=== PATIENT | male | born 1955 | race Caucasian/White ===

== ENCOUNTER 2017-05-06 06:55 | Day surgery (SDC) | payer BC ==
[2017-04-30 18:26] VITALS: BMI 37.5
[~2017-05-06 06:55] MED LIST: LACTATED RINGERS 1,000 ML IV SCH
[2017-05-06 07:24] VITALS: RESP 18; TEMP 97.7
[2017-05-06] MEDS ORDERED: LIDOCAINE 1% 20 ML VIAL (10MG/ML) FOR IV START INTRADERMA ONE (07:24)
[2017-05-06] MEDS ORDERED: PROPOFOL 10 MG/ML 20 ML VIAL IV ONE (07:42)
--- NOTE | 2017-05-06 07:52 | P.GSHP ---
History of Present Illness H&P Date: 05/06/17 Chief Complaint: Screening colonoscopy This is a 61-year-old male referred from Dr. Kymberly Del Castillo. Patient rents today for screening colonoscopy. His last colonoscopy was over 10 years ago. Past Medical History Past Medical History: Cancer, GERD/Reflux, Hypertension Additional Past Medical History / Comment(s): BLADDER CANCER WITH CHEMO X1 (7 MONTHS AGO), GOUT, RASH RIGHT HAND, ENLARGED PROSTATE. History of Any Multi-Drug Resistant Organisms: None Reported Additional Past Surgical History / Comment(s): REPAIR BROKEN LEFT HIP WITH SCREWS., REMOVAL OF BLADDER CANCER, CYSTOSCOPY. Past Anesthesia/Blood Transfusion Reactions: Motion Sickness, Postoperative Nausea & Vomiting (PONV) Past Psychological History: No Psychological Hx Reported Smoking Status: Never smoker Past Alcohol Use History: Occasional Past Drug Use History: None Reported - Past Family History Mother Family Medical History: No Reported History Medications and Allergies Home Medications Medication Instructions Recorded Confirmed Type Colchicine [Colcrys] 0.6 mg PO BID 09/05/16 04/30/17 History Lisinopril 40 mg PO BID 09/05/16 04/30/17 History Aspirin 650 mg PO Q8HR PRN 04/30/17 04/30/17 History Febuxostat [Uloric] 80 mg PO HS 04/30/17 04/30/17 History Acetaminophen Tab [Tylenol Tab] 325 mg PO Q6H 05/06/17 05/06/17 History Allergies Allergy/AdvReac Type Severity Reaction Status Date / Time No Known Allergies Allergy Verified 04/30/17 18:17 Surgical - Exam Vital Signs Temp Pulse Resp BP Pulse Ox 97.7 F 76 18 114/76 96 05/06/17 07:22 05/06/17 07:22 05/06/17 07:22 05/06/17 07:22 05/06/17 07:22 - General well developed, no distress - Eyes PERRL - ENT normal pinna - Neck no masses - Respiratory normal expansion - Cardiovascular Rhythm: regular - Abdomen Abdomen: soft, non tender Assessment and Plan Plan: We'll perform screening colonoscopy.
--- NOTE | 2017-05-06 08:01 | P.OP ---
Date of Procedure: 05/06/17 Preoperative Diagnosis: Screening colonoscopy Postoperative Diagnosis: Diverticulosis Procedure(s) Performed: Colonoscopy Implants: Anesthesia: MAC Surgeon: Wiliam Antonio Pathology: none sent Condition: stable Disposition: PACU Indications for Procedure: Operative Findings: Description of Procedure: The patient's placed on the endoscopy table in the lateral position. He received IV sedation. Digital rectal exam was performed which revealed no abnormalities. The prostate was symmetric without nodules. The flexible colonoscope was then placed patient anus and passed throughout the entire colon. The ileocecal valve was visualized. The cecum, ascending and transverse colon appeared normal. In the descending; there is moderate diverticular changes. There is no is diverticulitis. The scope was withdrawn and the rectum appeared normal. Scope was then withdrawn for patient.
[2017-05-06 08:30] VITALS: BP 135/80; PULSE 57
== END 2017-05-06 08:45 | disposition home or self-care (01) ==
LOC: ORWHC2ENDO 06:55
PROVIDERS: ATTEND Surgery
DX: Z12.11 Encounter for screening for malignant neoplasm of colon (principal); K57.30 Diverticulosis of large intestine without perforation or abscess without bleeding; K21.9 Gastro-esophageal reflux disease without esophagitis; I10 Essential (primary) hypertension; Z85.51 Personal history of malignant neoplasm of bladder; Z92.21 Personal history of antineoplastic chemotherapy; M10.9 Gout, unspecified; N40.0 Benign prostatic hyperplasia without lower urinary tract symptoms; Z79.82 Long term (current) use of aspirin; Z79.899 Other long term (current) drug therapy
CPT/HCPCS: J2704; G0121

== ENCOUNTER → 2021-12-12 | Outpatient (CLI) | payer BC ==
--- NOTE | 2021-12-12 13:44 | US ---
EXAMINATION TYPE: US kidneys/renal and bladder DATE OF EXAM: 12/12/2021 COMPARISON: CT CLINICAL HISTORY: C67.9 MALIGNANT NEOPLASM OF BLADDER, UNSPECIFIED. H/O bladder CA EXAM MEASUREMENTS: Right Kidney: 12.8 x 5.7 x 5.2 cm Left Kidney: 13.2 x 6.2 x 5.6 cm Right Kidney: Appeared wnl Left Kidney: Appeared wnl Bladder: wnl Bilateral Jets seen: Yes There is no evidence for hydronephrosis at this point in time. No nephrolithiasis is seen. No leigh s are identified. The urinary bladder is anechoic. Bilateral ureteral jets are seen. IMPRESSION: No significant abnormality.
== END | disposition home or self-care (01) ==
LOC: RADUSWWP 13:09
PROVIDERS: ATTEND Urology
DX: C67.9 Malignant neoplasm of bladder, unspecified (principal)
CPT/HCPCS: 76770

== ENCOUNTER → 2022-05-06 | Outpatient (CLI) | payer BC ==
[2022-05-06 12:31] LABS: Partial Thromboplastin Time 23.7 sec (22.0-30.0); Prothrombin Time 10.9 sec (9.0-12.0)
[2022-05-06 17:46] LABS: HCT 49.1 % (39.6-50.0); HGB 15.6 g/dL (13.0-17.0); MCH 30.4 pg (27.0-32.0); MCHC 31.8 g/dL (32.0-37.0); MCV 95.7 fL (80.0-97.0); Mean Platelet Volume 11.4 fL (9.5-12.2); NRBC Per 100 WBC 0 /100 WBCS (0.0-0.0); Platelet Count 187 X 10*3/uL (140-440); RBC 5.13 X 10*6/uL (4.40-5.60)
[2022-05-06 18:11] LABS: African American GFR (CKD) 101.4 (60.0-200.0); Albumin 4.3 g/dL (3.8-4.9); Albumin/Globulin Ratio 1.75 (1.60-3.17); Anion Gap 12.8 mmol/L (10.00-18.00); BUN/Creat Ratio 16.18 Ratio (12.00-20.00); Blood Urea Nitrogen 14.9 mg/dL (9.0-27.0); Carbon Dioxide 22.8 mmol/L (20.0-27.5); Globulin 2.5 g/dL (1.6-3.3); Non-African American GFR(CKD) 87.5 (60.0-200.0); Potassium 4.6 mmol/L (3.5-5.5); Total Bilirubin 0.3 mg/dL (0.30-1.20); Total Protein 6.8 g/dL (6.2-8.2)
[2022-05-06 19:04] LABS: Appearance,Urine Clear (Clear); Bilirubin,Urine Negative (Negative); Blood,Urine Negative (Negative); Color,Urine Yellow (Yellow); Ketones,Urine Negative (Negative); Nitrite,Urine Negative (Negative); Specific Gravity,Urine 1.021 (1.001-1.030)
== END | disposition home or self-care (01) ==
LOC: LABPAT 11:27
PROVIDERS: ATTEND Orthopaedic Surgery
DX: Z01.812 Encounter for preprocedural laboratory examination (principal); M17.12 Unilateral primary osteoarthritis, left knee
CPT/HCPCS: 36415; 80053; 81003; 85027; 85610; 85730; 87070

== ENCOUNTER → 2022-05-23 | Outpatient (CLI) | payer BC ==
--- NOTE | 2022-05-23 23:44 | CT ---
EXAMINATION TYPE: CT left knee - [facility] Protocol DATE OF EXAM: 05/23/2022 COMPARISON: None HISTORY: 66-year-old male Left knee pain-[facility] knee protocol CT DLP: 563.5 mGycm Automated exposure control for dose reduction was used. TECHNIQUE: CT of the left knee for surgical planning purposes. Additional scanning through the bilate ral hips and both ankles. Coronal and sagittal reconstructions performed. FINDINGS: Sigmoid diverticulosis. There is moderate degenerative change of both hips. Percutaneous pinning acro ss the left femoral neck. One of the screws may just abut or nearly violate the subchondral bone plat e of the femoral head. Refer to coronal image 65 series 16. Clinically correlate. There is a moderate knee joint effusion. Synovial calcifications noted. Moderate to large Calderon's cys t. Tricompartmental osteoarthrosis, severe within the medial compartment, moderate to severe patellof emoral compartment. Moderate to large Calderon's cyst with chronic synovial thickening. Some degenerative changes suggested at the left ankle. 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 Some midfoot degenerative change noted. IMPRESSION: 1. MODERATE BILATERAL HIP OA. PERCUTANEOUS ENDING ACROSS THE LEFT FEMORAL NECK. ONE OF THESE SCREWS M AY JUST ABUT OR NEARLY VIOLATE THE SUBCHONDRAL BONE PLATE OF THE FEMORAL HEAD, CORONAL SERIES 16 IMAG E 65. 2. SIGMOID DIVERTICULOSIS. 3. MODERATE LEFT KNEE JOINT EFFUSION. SYNOVIAL CALCIFICATIONS ARE PRESENT AND MAY REFLECT CPPD. MODER ATE TO LARGE CALDERON'S CYST. TRICOMPARTMENTAL OSTEOARTHROSIS, SEVERE IN THE MEDIAL COMPARTMENT.
== END | disposition home or self-care (01) ==
LOC: RADCTMAIN 14:33
PROVIDERS: ATTEND Orthopaedic Surgery
DX: M17.12 Unilateral primary osteoarthritis, left knee (principal); M21.162 Varus deformity, not elsewhere classified, left knee; Z68.38 Body mass index [BMI] 38.0-38.9, adult

== ENCOUNTER 2022-06-05 13:55 | Day surgery (SDC) | payer BC ==
[2022-06-03 16:16] VITALS: BMI 37.5
[~2022-06-05 13:55] MED LIST changes: +ACETAMINOPHEN TAB 500 MG TAB PO PRN; +DEXAMETHASONE SOD PHOSPHATE 10 MG/ML 1 ML VIAL IV PRN; +DOCUSATE 100 MG CAP PO PRN; +FAMOTIDINE 20 MG/2 ML VIAL IVP PRN; +KETOROLAC 15 MG/ML 1 ML VIAL IVP PRN; -LACTATED RINGERS 1,000 ML IV SCH; +LIDOCAINE 1% (10MG/ML) FOR IV START INTRADERMA PRN; +ONDANSETRON 4 MG/2 ML VIAL IVP PRN; +ROPIVACAINE/EPI/CLONIDINE/KET 50 ML SYRINGE MISCELLANE PRN; +TRANEXAMIC ACID 1,000 MG in SODIUM CHLORIDE 0.9% 100 ML IVPB ONE; +TRANEXAMIC ACID IN NACL,ISO-OS 1,000 MG in SALINE 1 100ML.BAG IVPB PRN; +oxyCODONE ER 10 MG TAB.ER.12H PO PRN
[2022-06-05] MEDS: LACTATED RINGERS 1,000 ML IV SCH ×2 (14:21→14:39)
[2022-06-05] MEDS ORDERED: MIDAZOLAM 2 MG/2 ML VIAL IVP ONE (14:55)
[2022-06-05] MEDS ORDERED: fentaNYL (PF) 50 MCG/ML 2 ML AMP IVP ONE (14:59)
[2022-06-05 15:28] LABS: Glucose,Whole Blood 90 mg/dL (70-110)
[2022-06-05] MEDS ORDERED: SODIUM CHLORIDE 0.9% (PF) 10 ML VIAL ONE (15:33)
[2022-06-05] MEDS ORDERED: DEXAMETHASONE SOD PHOSPHATE 4 MG/ML 1 ML VIAL ONE (15:33)
[2022-06-05] MEDS ORDERED: ROPIVACAINE 5 MG/ML 30 ML VIAL ONE (15:33)
[2022-06-05] MEDS ORDERED: MIDAZOLAM 2 MG/2 ML VIAL ONE (15:33)
[2022-06-05] MEDS ORDERED: TRANEXAMIC ACID IN NACL,ISO-OS 1,000 MG/100 ML BAG ONE (15:33)
[2022-06-05] MEDS ORDERED: fentaNYL (PF) 50 MCG/ML 2 ML AMP ONE (15:33)
--- NOTE | 2022-06-05 15:38 | P.ANPRN ---
Procedure Note - Anesthesia - Nerve Block Performed Left Adductor Canal Single Time Out Performed: Yes ([id number]) Date of Procedure: 06/05/22 Procedure Start Time: 14:59 Procedure Stop Time: 15:06 Location of Patient: PreOp Indication: Acute Post-Operative Pain, Dx/Pain Location (Left knee), Requested by Surgeon Specifically requested for management of pain by DrSera: Kael Hunter Sedation Type: Sedate with meaningful contact maintained Preparation: Sterile Prep Position: Supine Needle Types: Pajunk Needle Gauge: 21 Ultrasound used to visualize needle placement: Yes Ultrasound used to observe medication spread: Yes Injectate: 0.5% Ropivacaine (see comment for volume) (20 cc + 4mg of decadron) Blood Aspirated: No Pain Paresthesia on Injection Noted: No Resistance on Injection: Normal Image Stored and Saved: Yes Events: Uneventful and Well Tolerated Left iPack Single Time Out Performed: Yes Date of Procedure: 06/05/22 Location of Patient: PreOp Indication: Acute Post-Operative Pain, Dx/Pain Location (Left knee), Requested by Surgeon Specifically requested for management of pain by DrSera: Kael Hunter Sedation Type: Sedate with meaningful contact maintained Preparation: Sterile Prep Position: Right Lateral Catheter: None Needle Types: Pajunk Needle Gauge: 21 Ultrasound used to visualize needle placement: Yes Ultrasound used to observe medication spread: Yes Injectate: 0.5% Ropivacaine (see comment for volume) (20 cc) Blood Aspirated: No Pain Paresthesia on Injection Noted: No Resistance on Injection: Normal Image Stored and Saved: Yes Events: Uneventful and Well Tolerated
[2022-06-05] MEDS ORDERED: LACTATED RINGERS 1,000 ML IV ONE ×2 (18:07)
[2022-06-05] MEDS ORDERED: ONDANSETRON 4 MG/2 ML VIAL IVP PRN (18:11)
[2022-06-05] MEDS ORDERED: HYDROcodone/APAP 5-325MG 1 EACH TAB PO PRN ×2 (18:11)
[2022-06-05] MEDS ORDERED: NALOXONE 0.4 MG/ML 1 ML VIAL IV PRN (18:11)
[2022-06-05] MEDS ORDERED: HYDROmorphone 0.5 MG/0.5 ML SYRINGE IVP PRN ×3 (18:11)
[2022-06-05 18:12] LABS: Glucose,Whole Blood 141 mg/dL (70-110)
--- NOTE | 2022-06-05 18:16 | P.OP ---
Date of Procedure: 06/05/22 Preoperative Diagnosis: 1. Sever left knee osteoarthritis 2. Type 2 diabetes (preoperative hemoglobin A1c 7) 3. History of bladder cancer Postoperative Diagnosis: Same Procedure(s) Performed: Left total knee arthroplasty Implants: 1. [employer] CR Femur Size #4 2. [employer] [place] Tibial Base Size #5 3. [employer] CS poly Size #4, 9-mm 4. [employer] all poly patella, Size #32 Anesthesia: regional, spinal Surgeon: Kael Hunter Machine Set Up Operator Paper Goods #1: Ashley Fraga Estimated Blood Loss (ml): 200 IV fluids (ml): 800 Pathology: none sent Condition: stable Disposition: PACU Indications for Procedure: I met with the patient preoperatively in the office setting and discussed treatment of their symptomatic knee arthritis. They failed a long course of nonsurgical treatment and elected to proceed with an elective total knee replacement. I discussed the potential risks and complications at length and gave them ample time to ask questions. Risks discussed included: risks from anesthesia, superficial site surgical infection, acute and/or chronic periprosthetic joint infection, delayed wound healing, drainage, wound necrosis, instability, stiffness, stiffness requiring manipulation and/or revision surgery, damage to local blood vessels or nerves, aseptic loosening of the implants, extensor mechanism issues including disruption, patellar maltracking, avascular necrosis etc., continued or worsened knee pain, generalized dissatisfaction with surgical outcome, need for revision surgery, an inability to regain preinjury level of function, DVT, PE, other medical complications, and possibly loss of life or limb. The patient voiced their understanding that while these are the most common complications other less common complications are possible. They provided both their verbal and written consent to go forward with surgery. Operative Findings: Severe tricompartmental arthritis Description of Procedure: The patient was identified in preoperative holding and the correct operative extremity was verified and marked with a marker. I reviewed the consent form with the patient at length. All of their questions were answered. The patient was given a block by anesthesia. They were then brought back to the operating room. They were transferred onto the operating room table where a general anesthetic, preoperative antibiotics, and tranexamic acid were administered by anesthesia. A tourniquet was applied to the proximal aspect of the operative extremity. The contralateral extremity was padded under the heel and secured to the operating room table with a nonsterile blue towel and tape. The ipsilateral arm was carefully draped across the patient's chest and secured with a pillow and foam. A post was applied over the lateral aspect of the ipsilateral thigh and a bolster was placed under the ipsilateral foot. I verified that the operative extremity was stable and the knee was flexed to 90. The operative extremity was then placed in a leg raman, nonsterile drapes were applied, and the extremity was prepped and draped sterilely in the standard sterile fashion. Prior to starting surgery timeout was performed identifying the correct patient, operative extremity, and procedure. The leg was then elevated, exsanguinated with an Esmarch bandage, and the tourniquet was inflated. An anterior midline incision was made sharply with a scalpel. Once I had dissected deep to the superficial fascial layer medial and lateral flaps were elevated. A medial parapatellar arthrotomy was created. Upon opening the knee joint there were diffuse arthritic changes in all 3 compartments. The anterior horn of the medial meniscus were sharply released and a medial release was performed around the posterior medial corner of the knee to facilitate retractor placement. The fat pad was excised with electrocautery. The patella was found to be severely arthritic and a provisional cut was made with a sagittal saw to facilitate mobilization of the extensor mechanism during the procedure. Remnants of the ACL and PCL were then excised from the notch. 4 mm pins were then placed within the incision in the medial distal femur and proximal tibia. Arrays were applied to the pins and I verified they were completely tightened. The knee was then registered with the Pica8 robot and manipulations in implant position were made to balance the knee and opitmize implant position. Using the Eusebio robotic saw all cuts were made in accordance with our plan. After all bony fragments had been removed the cuts were verified with the planar probe. The tibia was then subluxed forward and sized. The knee was brought into flexion and a lamina lead sustainability specialist was placed to allow removal of the meniscal remnants both medially and laterally as well as posterior osteophytes. Local anesthetic was then infiltrated around the joint capsule. Trial implants were then placed within the knee. Range of motion and collateral ligament tension was then evaluated. Adjustments in implant size and position were then made accordingly. Once the knee was felt to be appropriately balanced the Eusebio pins were removed. The patella was then recut, sized, and punched. A trial patellar button was then placed. With the trial components in place, the patella tracked midline. The femur was then drilled and the trial component removed. The trial tibial component was then appropriately rotated, pinned, and prepared for the keel. All trial components were then removed from the knee. The knee was thoroughly irrigated with pulsatile lavage. Cement was prepared via vacuum mixing in a bowl on the back table. I then hand pressurized cement into the femur and tibia and placed the implants beginning with the tibial base tray and poly liner, femoral component, and finally the patellar button. All extruded cement was removed including from the pin sites. Once the cement had hardened the knee was evaluated one final time with the final polyethylene liner in place. The knee had full extension and flexion and felt stable to varus and valgus stress throughout the arc of motion. The tourniquet was released and with the tourniquet down the patella tracked midline. All bleeders were controlled with electrocautery. The knee was then soaked for 3 minutes with a dilute Betadine soak. The knee was thoroughly irrigated using 3 L of sterile saline and pulsatile lavage. The extensor mechanism was then reapproximated using pop off Vicryl sutures followed by a running barbed suture. The knee was then closed in layers with a 0 strata fix for the deep fascial layer, 2-0 strata fix for the superficial subcutaneous layer and Monocryl and Steri-Strips for the skin. A sterile dressing was applied. I verified that all instrument, sponge, and sharp counts were correct. The patient was then transferred off the operating room table, extubated, and brought to recovery having tolerated the procedure well. Ashley Fraga PA-C was required as a skilled biology research assistant due to the complexity of the procedure for patient positioning, draping, retraction, placement of hardware, and closure of wound. PLAN: The patient can weight-bear as tolerated on the operative extremity. DVT prophylaxis with aspirin 81 mg twice a day based on preoperative risk stratification. Follow-up in the office in 2 weeks for wound check and x-rays of the knee including an AP and lateral.
[2022-06-05] MEDS: HYDROmorphone 0.5 MG/0.5 ML SYRINGE IVP PRN ×2 (18:20→18:50)
--- NOTE | 2022-06-05 18:51 | XR ---
EXAMINATION TYPE: XR knee limited LT DATE OF EXAM: 06/05/2022 COMPARISON: NONE HISTORY: Knee pain TECHNIQUE: 2 views FINDINGS: There is a left knee prosthesis. Components appear in good position. IMPRESSION: No complicating process seen.
[2022-06-05] MEDS ORDERED: ONDANSETRON ODT 4 MG TAB PO ONE (19:28)
[2022-06-05] MEDS ORDERED: ONDANSETRON 4 MG/2 ML VIAL IVP ONE (19:28)
[2022-06-05] MEDS ORDERED: SENNOSIDES-DOCUSATE SODIUM 1 EACH TAB PO SCH (21:00)
[2022-06-05] MEDS: ASPIRIN 81 MG PO SCH (21:42)
[2022-06-06] MEDS: LACTATED RINGERS 1,000 ML IV SCH (05:03)
[2022-06-06 07:28] LABS: Glucose,Whole Blood 140 mg/dL (70-110)
[2022-06-06] MEDS: ASPIRIN 81 MG PO SCH (08:04)
--- NOTE | 2022-06-06 08:31 | P.DS ---
Providers Expected date of discharge: 06/06/22 Attending physician: Kael Hunter Consults: 06/05/22 18:11 Consult Physician Routine Consulting Provider: Lisa Phelan Consult Reason/Comments: medical management Do you want consulting provider notified?: Yes Primary care physician: Vazquez Phelan MD Hospital Course: This is a 67-year-old male who has been followed in our office by Dr. Hunter for continued complaints of left knee pain due to left knee osteoarthritis. Treatment options were discussed, and patient elected to undergo a left total knee arthroplasty. Patient was seen pre-operatively by Dr. Phelan and cleared for surgery. Patient underwent a BERNARD left total knee arthroplasty on 06/05/22. The procedure was performed without complication or sequelae. The patient is doing fairly well postoperatively. Vital signs and labs are stable on postoperative day #1. Patient was examined bedside today with Dr. Hunter. Patient states he is overall doing very well and the pain in his left knee is well-controlled. He has been ambulating with a walker with minimal assistance. Patient has passed physical therapy to return home. Patient is tolerating his diet well. Patient is comfortable being discharged home today. Patient denies chest pain, shortness of breath, nausea, vomiting, fevers, chills. On examination, the patient is sitting up in the bed in no apparent distress. He is alert and orientated 3. On inspection of the left knee, there is a clean, dry, intact Opsite dressing in place. There is no bleeding or drainage the dressing. Patient has good strength and ROM of the left ankle and toes. Motor and sensory function is intact of the left lower extremity. The dorsalis pedis pulse is easily palpable, the left lower extremity is warm and well perfused with brisk capillary refill. Calf is soft and non-tender to palpation. Patient is discharged home with home health in good condition, pending medical clearance. Patient will follow-up with Dr. Hunter in the office in 2 weeks. Please see med rec for accurate list of discharge medication. Plan - Discharge Summary Discharge Rx Participant: No New Discharge Prescriptions: New Docusate [Colace] 100 mg PO BID #60 capsule Diclofenac Sodium [Voltaren] 75 mg PO BID 30 Days #60 tab Aspirin 81 mg PO BID 30 Days #60 tab HYDROcodone/APAP 5-325MG [[place] 5-325] 1 - 2 tab PO Q6HR PRN 7 Days #32 tab PRN Reason: Pain Omeprazole 40 mg PO DAILY 30 Days #30 cap No Action lisinopriL 40 mg PO QAM Febuxostat [Uloric] 80 mg PO HS Acetaminophen Tab [Tylenol Tab] 325 - 650 mg PO Q6H PRN PRN Reason: Pain Glimepiride [Amaryl] 2 mg PO AC-BRKFST Mupirocin [Bactroban Nasal Ointment 2% (with applicator)] 1 applic TOPICAL BID Tamsulosin [Flomax] 0.4 mg PO HS Discharge Medication List lisinopriL 40 mg PO QAM 09/05/16 [History] Febuxostat [Uloric] 80 mg PO HS 04/30/17 [History] Acetaminophen Tab [Tylenol Tab] 325 - 650 mg PO Q6H PRN 05/06/17 [History] Glimepiride [Amaryl] 2 mg PO AC-BRKFST 06/03/22 [History] Mupirocin [Bactroban Nasal Ointment 2% (with applicator)] 1 applic TOPICAL BID 06/03/22 [History] Tamsulosin [Flomax] 0.4 mg PO HS 06/03/22 [History] Aspirin 81 mg PO BID 30 Days #60 tab 06/06/22 [Rx] Diclofenac Sodium [Voltaren] 75 mg PO BID 30 Days #60 tab 06/06/22 [Rx] Docusate [Colace] 100 mg PO BID #60 capsule 06/06/22 [Rx] HYDROcodone/APAP 5-325MG [[place] 5-325] 1 - 2 tab PO Q6HR PRN 7 Days #32 tab 06/06/22 [Rx] Omeprazole 40 mg PO DAILY 30 Days #30 cap 06/06/22 [Rx] Follow up Appointment(s)/Referral(s): Kael Hunter MD [Medical Doctor] - 2 Weeks Patient Instructions/Handouts: *Surgery [facility] - (O&A) Arthroscopic Knee Post-Op Instructions Activity/Diet/Wound Care/Special Instructions: Weight bear to tolerance on operative knee with a walker. Keep operative dressing intact. Call the office if dressing becomes saturated or falls off. May shower over dressing. Keep ice on the knee for swelling control. Take pain medications as prescribed. Take aspirin 81mg BID x 4 weeks for blood clot prevention. Follow-up in the office with Dr. Hunter in two weeks. Call the office with any questions or concerns, Discharge Disposition: HOME WITH HOME HEALTH SERVICES
[2022-06-06] MEDS ORDERED: GLIMEPIRIDE 1 MG TAB PO SCH (09:30)
[2022-06-06] MEDS ORDERED: lisinopriL 20 MG TAB PO SCH (09:30)
[2022-06-06] MEDS ORDERED: PANTOPRAZOLE 40 MG/10 ML VIAL IVP SCH (10:45)
--- NOTE | 2022-06-06 10:46 | P.CONS ---
History of Present Illness - Reason for Consult Consult date: 06/06/22 Medical management hypertension, gastroesophageal reflux disease Requesting physician: Kael Hunter - Chief Complaint Left knee osteoarthritis, status post Left total knee arthroplasty - History of Present Illness This is a pleasant 67-year-old gentleman with past medical history of bladder cancer, BPH, diabetes mellitus, hypertension, gastroesophageal arthritis, o steoarthritis,PONV and multiple other medical issues, status post left total knee arthroplasty secondary to severe left knee osteoarthritis. Tolerated procedure well. Participate with physical therapy, completed stairs, ambulating in the hallway, tolerating exertion well. Pain controlled.Denies lightheadedness, dizziness or focal deficits. Denies chest pain, palpitations or shortness of breath. Mild hypertension this morning, home meds resumed including patient's lisinopril. Maintaining O2 sats in the 90s on room air. Afebrile. Consumed 100% of breakfast, denies nausea vomiting or diarrhea. Passing flatus. Blood sugars controlled. Review of Systems Constitutional: Denied any fatigue denied any fever. Cardio vascular: denied any chest pain, palpitations Gastrointestinal denied any nausea vomiting Pulmonary: Denied any shortness of breath cough Neurologic denied any new focal deficits ROS Statement: Those systems with pertinent positive or pertinent negative responses have been documented in the HPI. ROS Other: All systems not noted in ROS Statement are negative. Past Medical History Past Medical History: Cancer, Diabetes Mellitus, GERD/Reflux, Hypertension, Osteoarthritis (OA) Additional Past Medical History / Comment(s): newly started on medication for diabetes,BLADDER CANCER WITH CHEMO X1 (2018), GOUT,ENLARGED PROSTATE. History of Any Multi-Drug Resistant Organisms: None Reported Additional Past Surgical History / Comment(s): REPAIR BROKEN LEFT HIP WITH SCREWS., REMOVAL OF BLADDER CANCER, CYSTOSCOPY,left knee arthroscopy Past Anesthesia/Blood Transfusion Reactions: No Reported Reaction, Motion Sickness, Postoperative Nausea & Vomiting (PONV) Additional Past Anesthesia/Blood Transfusion Reaction / Comm: no hx blood transfusion Past Psychological History: No Psychological Hx Reported Smoking Status: Never smoker Past Alcohol Use History: Occasional Past Drug Use History: None Reported - Past Family History Mother Family Medical History: Cancer Additional Family Medical History / Comment(s): pancreatic CA Medications and Allergies Home Medications Medication Instructions Recorded Confirmed Type lisinopriL 40 mg PO QAM 09/05/16 06/05/22 History Febuxostat [Uloric] 80 mg PO HS 04/30/17 06/05/22 History Acetaminophen Tab [Tylenol Tab] 325 - 650 mg PO Q6H PRN 05/06/17 06/05/22 History Glimepiride [Amaryl] 2 mg PO AC-BRKFST 06/03/22 06/05/22 History Mupirocin [Bactroban Nasal 1 applic TOPICAL BID 06/03/22 06/05/22 History Ointment 2% (with applicator)] Tamsulosin [Flomax] 0.4 mg PO HS 06/03/22 06/05/22 History Aspirin 81 mg PO BID 30 Days #60 tab 06/06/22 Rx Diclofenac Sodium [Voltaren] 75 mg PO BID 30 Days #60 tab 06/06/22 Rx Docusate [Colace] 100 mg PO BID #60 capsule 06/06/22 Rx HYDROcodone/APAP 5-325MG [[place] 1 - 2 tab PO Q6HR PRN 7 Days #32 06/06/22 Rx 5-325] tab Omeprazole 40 mg PO DAILY 30 Days #30 cap 06/06/22 Rx Allergies Allergy/AdvReac Type Severity Reaction Status Date / Time No Known Allergies Allergy Verified 06/05/22 14:28 Physical Exam Vitals: Vital Signs Temp Pulse Pulse Resp BP Pulse Ox 06/06/22 01:00 97.6 F 81 18 144/84 96 06/05/22 23:00 82 16 132/82 95 06/05/22 21:30 80 18 147/85 93 L 06/05/22 21:15 67 18 131/81 90 L 06/05/22 21:00 83 18 145/90 93 L 06/05/22 20:15 80 18 118/81 94 L 06/05/22 20:00 61 16 128/83 95 06/05/22 19:45 97.5 F L 59 L 16 144/77 93 L 06/05/22 19:35 70 16 134/72 99 06/05/22 19:05 58 L 138/61 100 06/05/22 18:50 70 16 132/78 99 06/05/22 18:46 97.5 F L 58 L 16 144/77 93 L 06/05/22 18:35 55 L 16 152/68 99 06/05/22 18:20 79 16 129/63 94 L 06/05/22 18:07 97.1 F L 82 16 134/67 94 L 06/05/22 15:20 75 16 126/70 95 06/05/22 14:50 96.8 F L 90 16 150/70 94 L Intake and Output 06/05/22 06/06/22 06/06/22 22:59 06:59 14:59 Intake Total 900 410 Output Total 200 Balance 700 410 Intake: IV 900 Intake, IV Titration 50 Amount ceFAZolin 2 gm In Sodium 50 Chloride 0.9% 50 ml @ 100 mls/hr IVPB Q8H [facility] Rx#: [id number] Oral 360 Output: Estimated Blood Loss 200 Other: # Voids 1 1 Weight 109.7 kg PHYSICAL EXAM: VITAL SIGNS: As above GENERAL: Sitting up in chair, no acute distress HEENT: Normocephalic, atraumatic, Conjunctivae normal. eyes normal. MMM. NECK: Supple, No JVD. No thyroid enlargement. No LNs CARDIOVASCULAR: S1, S2 regular.No murmur RESPIRATION: Unlabored, breath sounds diminished in the bases. No rhonchi or crackles. No bronchial breathing. ABDOMEN: Soft, nontender . No guarding. no masses palpable. No ascites, No hepatosplenomegaly.Bowel sounds heard. LEGS: Left knee dressing clean dry and intact, minimal edema. No clubbing or cyanosis, no calf tenderness, positive DP pulse. PSYCHIATRY: Alert and oriented X3, mood and affect normal. NERVOUS SYSTEM: Cranial N 2-12 grossly normal. Moves all 4 limbs. No focal deficits. Strength and sensation grossly intact. Skin: Warm and dry, no rash Results Labs: Abnormal Lab Results - Last 24 Hours (Table) 06/05/22 06/06/22 Range/Units 18:10 07:26 POC Glucose (mg/dL) 141 H 140 H (70-110) mg/dL Assessment and Plan Assessment: left knee osteoarthritis, status post left total knee arthroplasty Diabetes mellitus, hemoglobin A1c preop 7 Hypertension Gastroesophageal reflux disease Osteoarthritis History of bladder cancer BPH PONV Plan: Continue on current medication regime ,monitoring and symptomatic treatment. PPI added for GI prophylaxis. Home meds reviewed and resumed accordingly. Pain management and DVT prophylaxis as per primary. Aggressive pulmonary toileting with incentive spirometer reinforced. Discharge planning in progress as per orthopedic surgery. Follow-up with PCP in one week. Thank you Dr. Hunter for the consult. The impression and plan of care has been dictated as directed. : I performed a history and examination of this patient, discussed the same with the dictator. I agree with the dictator's note ,documented as a scribe. Any additional findings or plans will be noted.
[2022-06-06 11:20] LABS: Basophils # (A) 0.01 X 10*3/uL (0.00-0.10); Basophils % (A) 0.1 %; Eosinophils # (A) 0 X 10*3/uL (0.04-0.35); Eosinophils % (A) 0 %; HCT 41.8 % (39.6-50.0); HGB 14.1 g/dL (13.0-17.0); Immature Grans, Automated 0.7 %; Lymphocytes # (A) 0.81 X 10*3/uL (0.90-5.00); Lymphocytes % (A) 5.5 %; MCH 31.6 pg (27.0-32.0); MCHC 33.7 g/dL (32.0-37.0); MCV 93.7 fL (80.0-97.0); Mean Platelet Volume 11.2 fL (9.5-12.2); Monocytes # (A) 0.81 X 10*3/uL (0.20-1.00); Monocytes % (A) 5.5 %; NRBC Per 100 WBC 0 /100 WBCS (0.0-0.0); Neutrophils % (A) 88.2 %; Platelet Count 207 X 10*3/uL (140-440); RBC 4.46 X 10*6/uL (4.40-5.60); RDW 12.9 % (11.5-14.5); WBC 14.83 X 10*3/uL (4.50-10.00)
[2022-06-06 11:27] VITALS: BP 127/81; PULSE 70; RESP 16; TEMP 97.8
[2022-06-06 11:49] LABS: Glucose,Whole Blood 162 mg/dL (70-110)
[2022-06-06] MEDS ORDERED: TAMSULOSIN 0.4 MG CAP.ER.24H PO SCH (21:00)
== END 2022-06-06 13:41 | disposition home health service (06) ==
LOC: OR 13:55 → 4SSUR 17:58 → OR 06-06 13:41
PROVIDERS: ATTEND Orthopaedic Surgery
DX: M17.12 Unilateral primary osteoarthritis, left knee (principal); G89.18 Other acute postprocedural pain; E11.9 Type 2 diabetes mellitus without complications; Z85.51 Personal history of malignant neoplasm of bladder; M21.162 Varus deformity, not elsewhere classified, left knee; I10 Essential (primary) hypertension; Z79.82 Long term (current) use of aspirin; Z79.1 Long term (current) use of non-steroidal anti-inflammatories (NSAID); Z79.899 Other long term (current) drug therapy; Z79.84 Long term (current) use of oral hypoglycemic drugs; Z80.0 Family history of malignant neoplasm of digestive organs
CPT/HCPCS: 73560; 64447; 64999; 76942; 27447; J2250; J1100; J0690; J2405; J3010; J1885; J1170; 64448; 85025

== ENCOUNTER 2023-04-16 15:51 | Emergency (ER) | payer BC ==
[2023-04-16] MEDS ORDERED: LIDOCAINE 1% INJ 10MG/ML (30 ML VIAL-PF) SQ ONE (16:28)
--- NOTE | 2023-04-16 16:47 | ED ---
Wound/Laceration HPI - General Chief Complaint: Wound/Laceration Stated Complaint: left hand laceration Time Seen by Provider: 04/16/23 16:28 Source: patient Mode of arrival: ambulatory Limitations: no limitations - History of Present Illness Initial Comments: Patient is a 67-year-old male who presents the emergency department for laceration. Patient cut his left middle finger on his pocket knife today. He reports minimal pain. No issues with range of motion. No numbness or tingling. Tetanus is up-to-date - Related Data Home Medications Medication Instructions Recorded Confirmed lisinopriL 40 mg PO QAM 09/05/16 06/05/22 Febuxostat [Uloric] 80 mg PO HS 04/30/17 06/05/22 Acetaminophen Tab [Tylenol Tab] 325 - 650 mg PO Q6H PRN 05/06/17 06/05/22 Glimepiride [Amaryl] 2 mg PO AC-BRKFST 06/03/22 06/05/22 Mupirocin [Bactroban Nasal 1 applic TOPICAL BID 06/03/22 06/05/22 Ointment 2% (with applicator)] Tamsulosin [Flomax] 0.4 mg PO HS 06/03/22 06/05/22 Previous Rx's Medication Instructions Recorded Aspirin 81 mg PO BID 30 Days #60 tab 06/06/22 Diclofenac Sodium [Voltaren] 75 mg PO BID 30 Days #60 tab 06/06/22 Docusate [Colace] 100 mg PO BID #60 capsule 06/06/22 HYDROcodone/APAP 5-325MG [[place] 1 - 2 tab PO Q6HR PRN 7 Days #32 06/06/22 5-325] tab Omeprazole 40 mg PO DAILY 30 Days #30 cap 06/06/22 Allergies Allergy/AdvReac Type Severity Reaction Status Date / Time No Known Allergies Allergy Verified 04/16/23 15:58 Review of Systems ROS Statement: Those systems with pertinent positive or pertinent negative responses have been documented in the HPI. ROS Other: All systems not noted in ROS Statement are negative. Past Medical History Past Medical History: Cancer, GERD/Reflux, Hypertension Additional Past Medical History / Comment(s): BLADDER CANCER WITH CHEMO X1 (7 MONTHS AGO), GOUT, RASH RIGHT HAND, ENLARGED PROSTATE. History of Any Multi-Drug Resistant Organisms: None Reported Additional Past Surgical History / Comment(s): REPAIR BROKEN LEFT HIP WITH SCREWS., REMOVAL OF BLADDER CANCER, CYSTOSCOPY. Past Anesthesia/Blood Transfusion Reactions: No Reported Reaction, Motion Sickness, Postoperative Nausea & Vomiting (PONV) Past Psychological History: No Psychological Hx Reported Smoking Status: Never smoker Past Alcohol Use History: Occasional Past Drug Use History: None Reported - Past Family History Mother Family Medical History: Cancer General Exam Limitations: no limitations General appearance: alert, in no apparent distress Respiratory exam: Present: normal lung sounds bilaterally. Absent: respiratory distress, wheezes, rales, rhonchi, stridor Cardiovascular Exam: Present: regular rate, normal rhythm, normal heart sounds. Absent: systolic murmur, diastolic murmur, rubs, gallop, clicks Extremities exam: Present: other (1 cm and another 0.5 cm laceration dorsal aspect of left middle finger just distal to MCP joint. No tendons visualized. Full ROM neurovascularly intact) Course Vital Signs 04/16/23 04/16/23 15:56 17:27 Temperature 98.2 F 98 F Pulse Rate 68 70 Respiratory 18 16 Rate Blood Pressure 152/87 148/79 O2 Sat by Pulse 98 98 Oximetry Procedures - Laceration Laceration #1 Indication: laceration Site: hand Anesthetic Used: lidocaine 1% Anesthesia Technique: local infiltration Size of Sutures: 5-0 Number of Sutures: 3 Technique: simple, interrupted Patient Tolerated Procedure: well, no complications Medical Decision Making - Medical Decision Making Was pt. sent in by a medical professional or institution (Dr. PA, BRAND LEAD, urgent care, hospital, or prison...) When possible be specific @ -No Did you speak to anyone other than the patient for history (EMS, parent, family, police, friend...)? What history was obtained from this source @ -No Did you review nursing and triage notes (agree or disagree)? Why? @ -I reviewed and agree with nursing and triage notes Were old charts reviewed (outside hosp., previous admission, EMS record, old EKG, old radiological studies, urgent care reports/EKG's, prison records)? Report findings @ -No old charts were reviewed Differential Diagnosis (chest pain, altered mental status, abdominal pain women, abdominal pain men, vaginal bleeding, weakness, fever, dyspnea, syncope, headache, dizziness, GI bleed, back pain, seizure, CVA, palpatations, mental health)? @ -Laceration, abrasion, skin tear EKG interpreted by me (3pts min.). @ -As above X-rays interpreted by me (1pt min.). @ -None done CT interpreted by me (1pt min.). @ -None done U/S interpreted by me (1pt. min.). @ -None done What testing was considered but not performed or refused? (CT, X-rays, U/S, labs)? Why? @ -None What meds were considered but not given or refused? Why? @ -None Did you discuss the management of the patient with other professionals (professionals i.e. Dr., PA, BR[employer], lab, RT, psych nurse, social media senior associate, safety lamp keeper, teacher, corporate ethics officer, heel caser)? Give summary @ -No Was smoking cessation discussed for >3mins.? @ -No Was critical care preformed (if so, how long)? @ -No Were there social determinants of health that impacted care today? How? (Homelessness, low income, unemployed, alcoholism, drug addiction, transportation, low edu. Level, literacy, decrease access to med. care, custodial, rehab)? @ -No Was there de-escalation of care discussed even if they declined (Discuss DNR or withdrawal of care, Hospice)? DNR status @ -No What co-morbidities impacted this encounter? (DM, HTN, Smoking, COPD, CAD, Cancer, CVA, ARF, Chemo, Hep., AIDS, mental health diagnosis, sleep apnea, morbid obesity)? @ -None Was patient admitted / discharged? Hospital course, mention meds given and route, prescriptions, significant lab abnormalities, going to OR and other pertinent info. @ -Discharged Undiagnosed new problem with uncertain prognosis? @ -No Drug Therapy requiring intensive monitoring for toxicity (Heparin, Nitro, Insulin, Cardizem)? @ -[No] Were any procedures done? @ Yes, laceration repair Diagnosis/symptom? @ Laceration Acute, or Chronic, or Acute on Chronic? @ -Acute Uncomplicated (without systemic symptoms) or Complicated (systemic symptoms)? @ Uncomplicated Side effects of treatment? @ -No Exacerbation, Progression, or Severe Exacerbation? @ -[No] Poses a threat to life or bodily function? How? (Chest pain, [place], [place], pneumonia, PE, COPD, DKA, ARF, appy, cholecystitis, CVA, Diverticulitis, Homicidal, Suicidal, threat to staff... and all critical care pts) @ -[No] Dr. Serrano is my attending Disposition Clinical Impression: Laceration Disposition: HOME SELF-CARE Condition: Good Instructions (If sedation given, give patient instructions): Care For Your Stitches (ED), Laceration (ED) Additional Instructions: Leave wound uncovered. Keep wound clean and dry. Wash with a mild soap. Take Tylenol or anti-inflammatories such as Motrin for pain. Follow-up with primary care provider in 1-2 days. Return for suture removal in 7-10 days. Report back to the emergency department if you experience new, concerning, or worsening symptoms. Is patient prescribed a controlled substance at d/c from ED?: No Referrals: Kymberly Del Castillo DO [Primary Care Provider] - 1-2 days
[2023-04-16 17:28] VITALS: BP 148/79; PULSE 70; RESP 16; TEMP 98
== END 2023-04-16 17:28 | disposition home or self-care (01) ==
LOC: EC 15:51
DX: S61.213A Laceration without foreign body of left middle finger without damage to nail, initial encounter (principal); I10 Essential (primary) hypertension; Z79.899 Other long term (current) drug therapy; W26.0XXA Contact with knife, initial encounter
CPT/HCPCS: 99282; 12001; J2001